=== PATIENT | female | born 1975 | race Caucasian/White ===

== ENCOUNTER 2016-08-18 09:17 | Inpatient (IN) | payer OTHER ==
--- NOTE | ~2016-08-18 | HP ---
History And Physical [id number] [place]. [address] NAME: DINAH HUGHES : 77 STATUS : ADM IN PAT#: [id number] AGE: 40 ADM/REG DATE : 08/18/16 MR#: [id number] REPORT SERV DATE: 08/18/16 DICTATED BY: TAINA GARLAND DATE: 08/18/16 REPORT STATUS : Draft TRANSCRIBED BY: MODL DATE: 08/18/16 DATE OF ADMISSION: 08/18/2016 HISTORY OF PRESENT ILLNESS: Ms. Hughes is an unfortunate 40-year-old woman with metastatic colon cancer with ascites and pleural effusion who had been in the hospital and had been treated by hospice in the past, but she has started treatment at an outside Oncology facility and is still searching for aggressive treatment. She came in because of fever, weakness, dizziness, and was found to be hypotensive in the emergency department. She has had a fever as noted and remained hypotensive even after initiation of IV fluids. PAST MEDICAL HISTORY: Significant for colon cancer diagnosed in 2016, metastatic to liver with malignant ascites and pleural effusion. She had placed herself on hospice care but is now pursuing aggressive therapy. SOCIAL HISTORY: Negative for tobacco abuse, alcohol abuse, or illicit drug use. She has two teenage sons. FAMILY HISTORY: Significant for solid organ malignancy. REVIEW OF SYSTEMS: Review of 10 systems was performed with the help of her mother and aunt who were at the bedside and is positive for what was noted above. PHYSICAL EXAMINATION: GENERAL: On exam, she is a thin, chronically ill-appearing young woman. HEENT: Normocephalic and atraumatic. NECK: Supple. No lymphadenopathy. No JVD. CHEST: Symmetric with good expansion bilaterally. LUNGS: Mostly clear. I could not appreciate any wheezing. CARDIOVASCULAR: She has S1 and S2, which are regular rate and rhythm with a positive fluid wave. She has trace edema. No clubbing. No cyanosis. ASSESSMENT AND PLAN: 1. Fever in the setting of chemotherapy. The patient has been receiving chemotherapy, though she is not presently neutropenic. However, her procalcitonin is extremely high at 171 consistent with sepsis in the setting of immunosuppression from chemotherapy and underlying solid organ malignancy. She also has a very high TSH and had been apparently treating her hypothyroidism with alternative medications instead of standard levothyroxine. Her lactate is elevated at 9.8 and her cortisol is high. This consistent again with sepsis in the setting of immunosuppression, chemotherapy. She does not have an obvious source, though she does have an abnormal chest radiograph with effusion. We have started on broad-spectrum antibiotic therapy, aggressive volume resuscitation including albumin as well a pressor support. She does have a port which has been accessed. Her cortisol level is elevated, so we have not started her on cortisol or steroid replacement, though we have started her on IV Synthroid given her very high TSH in the setting of her acute illness and inadequate replacement therapy. History And Physical [address] [place]. [address] NAME: DINAH HUGHES : [birth year] STATUS : ADM IN [facility]#: [id number] AGE: 40 ADM/REG DATE : 08/18/16 MR#: [id number] REPORT SERV DATE: 08/18/16 DICTATED BY: TANIA GARLAND DATE: 08/18/16 REPORT STATUS : Draft TRANSCRIBED BY: ABEBA DATE: 08/18/16 Care was discussed with the patient and her family. ELIESER/ABEBA Taina Garland M.D. / [id number] CC: Viktoriya Lopez M.D.
--- NOTE | ~2016-08-18 | IDS ---
Interim Discharge Summary [facility] [address] [place]. [address] NAME: DINAH HUGHES : [birth year] STATUS : ADM IN [facility]#: [id number] AGE: 40 ADM/REG DATE : 08/18/16 MR#: [id number] REPORT SERV DATE: 08/24/16 DICTATED BY: TAINA GARLAND DATE: 08/24/16 REPORT STATUS : Draft TRANSCRIBED BY: MODRoland DATE: 08/24/16 ADMISSION DATE: 08/18/2016 DISCHARGE DATE: 08/24/2016 This will serve as an interim discharge summary as the patient is being transferred from the ICU to the Hospitalist Service. DATE OF TRANSFER: 08/24/2016. CONDITION AT DISCHARGE: Alive and improved. DIAGNOSES AT THE TIME OF DISCHARGE: Streptococcal sepsis; septic shock, resolving; metastatic colon cancer, resolved, acute kidney injury, and hypotension due to septic shock. HISTORY OF PRESENT ILLNESS: Ms. Hughes is a 40-year-old woman with acetic colon cancer with ascites and pleural effusion with PleurX catheter, who had been on systemic cytotoxic therapy and came in with decreased alertness, hypotension, and was found to be septic. She had a very high procalcitonin level, which will be discussed below, and has been on antibiotic therapy. For the past few days, we have been trying to wean her off pressors. Her respiratory status has remained stable and she has now been off vasopressors with an encouragingly declining procalcitonin level. REVIEW OF SYSTEMS: Review of 10 systems this morning is positive for what was outlined above. PHYSICAL EXAMINATION: GENERAL: On exam, she is awake and alert, in no acute distress. VITAL SIGNS: She is afebrile with heart rate between 60 and 70. Mean blood pressure between 60 and 80, and good oxygen saturation on room air at rest. HEENT: Normocephalic and atraumatic. NECK: Supple. No lymphadenopathy. No JVD. CHEST: Symmetric with good expansion bilaterally. LUNGS: Her lungs have somewhat coarse breath sounds, were mostly clear. CARDIOVASCULAR: She has S1 and S2, which are regular rate and rhythm. ABDOMEN: Benign. She has ascites. She has trace edema, but no clubbing, no cyanosis. ASSESSMENT AND PLAN: Septic shock: She came in with a high lactate and a high procalcitonin level of 171 with hypotension, acute kidney injury. Her procalcitonin has steadily declined from 170 to 50 to 23, and is now 3.6. Her only positive culture was a blood culture that grew an alpha strep. We presumed this from a GI or abdominal source. She has responded well to therapy without requiring any interventions. While here, she has had a paracentesis on 08/21/2016 with 3800 mL of fluid removed and has had daily drainage from her PleurX catheter with removal of about a liter a day. We had initially treated her with vancomycin, cefepime, and levofloxacin since she had only the alpha strep. We would discontinue the vancomycin, completed five days of levofloxacin, and would continue with the cefepime until her procalcitonin level is normalized, and she has no ongoing evidence of infection. Care Interim Discharge Summary [address] [address] NAME: DINAH HUGHES : [birth year] STATUS : ADM IN [facility]#: [id number] AGE: 40 ADM/REG DATE : 08/18/16 MR#: [id number] REPORT SERV DATE: 08/24/16 DICTATED BY: TAINA GARLAND DATE: 08/24/16 REPORT STATUS : Draft TRANSCRIBED BY: ABEBA DATE: 08/24/16 has been discussed with the patient. She will be transferred to the Hospitalist Service. ELIESER/ABEBA Taina Garland M.D. / [id number] CC: Maria E Davalos M.D.
--- NOTE | ~2016-08-18 | DS ---
Discharge Summary [facility] [address] [place]. [address] NAME: DINAH KIMBROUGH : 77 STATUS : DIS IN PAT#: [id number] AGE: 40 ADM/REG DATE : 08/18/16 MR#: [id number] REPORT SERV DATE: 08/28/16 DICTATED BY: CLAUDIA LEWIS II DATE: 08/27/16 REPORT STATUS : Draft TRANSCRIBED BY: MODL DATE: 08/27/16 ADMISSION DATE: 08/18/2016 DISCHARGE DATE: 08/27/2016 DISCHARGE DIAGNOSES: 1. Septic shock. 2. Strep bacteremia. 3. Thrombocytopenia secondary to chemo, present on admission. 4. Hypotension, chronic. 5. Chronic pain. 6. Chronic malignant ascites with PleurX. 7. Metastatic colon cancer, followed by [facility]. 8. Severe hypoalbuminemia. 9. Chronically elevated LFTs secondary to underlying cancer. 10.Electrolyte abnormalities. CONSULTS: Dr. Garland with Pulmonary and Critical Care. BRIEF HISTORY OF PRESENT ILLNESS: The patient is a 40-year-old female with the above history, who presented to [facility] due to fever, weakness, dizziness and found to be extremely hypotensive in the ER. For detailed history and physical examination, please see Dr. Garland's note from 08/18/2016. HOSPITAL COURSE: On admission, the patient was started on broad-spectrum antibiotics. Her white count on admission was 28, and procalcitonin was 171. Lactic acid was almost 10. The patient was clearly in septic shock, though the only cultures obtained were 1/2 blood cultures with strep viridans. Presumably, the source of infection was intra-abdominal, but no cultures were obtained from PleurX catheter. The patient was initially on vancomycin and cefepime and switched to cefepime. Her procalcitonin has since trended down back to near normal, as well as her white count is also down at 5.5. She has been afebrile and now fairly stable. She is chronically hypotensive and has been started on midodrine. Her cortisol level was 37, so doubt significant adrenal insufficiency. Her TSH was also elevated at 20, but free T4 was normal, so likely more related to euthyroid sick syndrome. This will need to be repeated as an outpatient. Otherwise, she continues to drain her abdominal PleurX daily and is limited to 1100 mL daily at home, though more has been drained daily while here. She will continue to drain her abdominal PleurX herself at home. She has received a total of nine days of cefepime. Given her positive blood culture, we will treat for a total of two weeks and switch to Duricef to cover strep. Otherwise, she is clinically stable for discharge. DISCHARGE MEDICATIONS: 1. Roxicodone 5 mg p.o. q.4 hours p.r.n. pain. 2. Xarelto 20 mg p.o. daily. 3. Midodrine 10 mg p.o. t.i.d. 4. L-glutamine powder 15 mL p.o. daily. 5. Calcium carbonate mg p.o. b.i.d. p.r.n. Discharge Summary [address] [address] NAME: DINAH KIMBROUGH : 77 STATUS : DIS IN PAT#: [id number] AGE: 40 ADM/REG DATE : 08/18/16 MR#: [id number] REPORT SERV DATE: 08/28/16 DICTATED BY: CLAUDIA LEWIS II DATE: 08/27/16 REPORT STATUS : Draft TRANSCRIBED BY: ABEBA DATE: 08/27/16 6. Cortisol [employer] OTC tab daily. 7. Beta-1, 3-D Glucan tab daily. 8. Milk thistle two tabs p.o. b.i.d. 9. Doxepin 10 mg p.o. daily p.r.n. pain. 10.Cholecalciferol 2000 units p.o. daily. 11.Synthroid supplement one tab p.o. t.i.d. 12.Simethicone p.r.n. 13.B complex tab daily. 14.Duricef 1000 mg p.o. b.i.d. x5 days. DISCHARGE INSTRUCTIONS: The patient will follow up with [facility] in one to two weeks. LUCITA/ABEBA Claudia Lewis II, MD / [id number]
[2016-08-18 09:03] LABS: BASOPHILS 0.1 %; BASOPHILS ABSOLUTE 0.02 10/3/uL (0.0-0.16); EOSINOPHILS 0 %; EOSINOPHILS ABSOLUTE 0.01 10/3/uL (0.0-0.53); HEMATOCRIT 29.7 % (36.0-48.0); HEMOGLOBIN 9.3 g/dL (12.0-16.0); IMMATURE GRANULOCYTES 1.1 %; LYMPHOCYTES 1.7 %; LYMPHOCYTES ABSOLUTE 0.48 10/3/uL (0.67-4.30); MEAN CORPUS HGB CONC 31.3 g/dL (32.0-36.0); MEAN CORPUSCULAR HEMOGLOB 31.4 pg (26.0-34.0); MEAN PLATELET VOLUME 10.6 fL (9.2-13.0); MONOCYTES 0.2 %; MONOCYTES ABSOLUTE 0.05 10/3/uL (0.21-1.20); NEUTROPHILS 96.9 %; NEUTROPHILS ABSOLUTE 27.29 10/3/uL (2.02-8.40); RBC DISTRIBUTION WIDTH 18.4 % (12.0-16.0); RED CELL COUNT 2.96 10/6/uL (4.0-5.6)
[2016-08-18 09:05] LABS: ER CBC TAT 0 Hrs 08 Mins; MANUAL DIFF NO %; MEAN CORPUSCULAR VOLUME 100.3 fL (80-100); PLATELET COUNT 217 10/3/uL (150-400); WHITE BLOOD CELLS 28.2 10/3/uL (4.5-10.5)
[2016-08-18 09:06] LABS: IMMATURE GRANULOCYTES ABSOLUTE 0.32 10/3/uL (0.0-0.11)
[2016-08-18 09:14] LABS: ASCORBIC ACID (UR NOT ORDER) NEG (NEG); BILIRUBIN, URINE NEGATIVE (NEG); ER URINALYSIS TAT 0 Hrs 11 Mins; KETONE, URINE NEGATIVE (NEG); LEUKOCYTE ESTERASE(NOT OR NEG (NEG); NITRITE (URINE) NEG (NEG); WBC (NOT ORDERED) (RFLEX) < 1 (0-5)
[~2016-08-18 09:17] MED LIST: DEX2 PO; PRILO PO; RITALIN5 PO; ULTRAM50 PO; VITAMIN B17 PO; XARELTO20 MG PO
[2016-08-18 09:20] LABS: A/G RATIO 0.3 (0.7-1.9); ALBUMIN 1.3 G/DL (3.5-5.0); ALKALINE PHOSPHATASE 678 U/L (45-117); BUN (BLOOD UREA NITROGEN) 16 MG/DL (6-23); CALCIUM, SERUM 8.7 MG/DL (8.5-10.4); CHLORIDE, SERUM 109 MMOL/L (96-112); CO2 (CARBON DIOXIDE) 16 MMOL/L (24-34); CREATININE 1.26 MG/DL (0.55-1.02); GFR AFRICAN AMERICAN 62 ML/MIN (>=60); GFR NON AFRICAN AMERICAN 54 ML/MIN (>=60); GLOBULIN 3.8 G/DL (2.5-4.1); GLUCOSE, SERUM 58 MG/DL (60-99); SGPT(ALT) 58 U/L (5-65); SODIUM, SERUM 141 MMOL/L (135-148); TOTAL BILIRUBIN 0.8 MG/DL (0-1.2); TOTAL PROTEIN 5.1 G/DL (6.0-8.5)
[2016-08-18 09:21] LABS: SGOT(AST) 93 U/L (5-40)
[2016-08-18 09:34] LABS: BAND NEUTROPHILS 23 %; ER DIFF TAT 0 Hrs 37 Mins; LYMPHOCYTES 3 %; LYMPHOCYTES ABSOLUTE (CALC) 0.85 10/3/uL (0.67-4.30); MONOCYTES 3 %; MONOCYTES ABSOLUTE (CALC) 0.85 10/3/uL (0.21-1.20); NEUTROPHILS ABSOLUTE (CALC) 26.51 10/3/uL (2.02-8.40); PLATELET ESTIMATE ADQ (ADEQUATE); SEGMENTED NEUTROPHIL (0) 71 %; TOTAL NUCLEATED CELLS 100
[2016-08-18 09:35] LABS: ANISOCYTOSIS 1+ (5-10/OIF) (0-5/OIF); HYPOCHROMIA 1+ (3-10/OIF) (0-2/OIF); MACROCYTES 1+ (5-10/OIF) (0-5/OIF)
[2016-08-18] MEDS ORDERED: OXYCOD PO (10:47)
[2016-08-18] MEDS ORDERED: TUMS E-X750 M2 PO (10:47)
[2016-08-18] MEDS ORDERED: L-GLUTAMINE POWDER PO (10:47)
[2016-08-18] MEDS ORDERED: CORTISOL MANAGER PO (10:48)
[2016-08-18] MEDS ORDERED: BETA PO (10:49)
[2016-08-18] MEDS ORDERED: MILK THISTLE PO (10:49)
[2016-08-18] MEDS ORDERED: VITAMIN D3 PO (10:50)
[2016-08-18] MEDS ORDERED: DOX10 PO (10:50)
[2016-08-18] MEDS ORDERED: THYROID SUPPLEMENT PO (10:52)
[2016-08-18] MEDS ORDERED: MYTAB GAS125 MG PO (10:53)
[2016-08-18] MEDS ORDERED: VITAMIN B PO (10:53)
[2016-08-18] MEDS ORDERED: EMLA TOP (10:53)
[2016-08-18] MEDS ORDERED: XARELTO20 MG PO (11:01)
[2016-08-18] MEDS ORDERED: CHEMO THERAPY IV (11:04)
[2016-08-18 12:42] LABS: FREE T4 1.06 NG/DL (0.76-1.46); ULTRASENSITIVE TSH 19.5 MCIU/ML (0.358-3.740)
[2016-08-18 13:09] LABS: PROCALCITONIN 171.3 ng/mL (<0.5)
[2016-08-18 14:47] LABS: T4 (THYROXINE) TOTAL 5.8 MCG/DL (4.5-12.0)
[2016-08-18 14:48] LABS: ULTRASENSITIVE TSH 19.7 MCIU/ML (0.358-3.740)
[2016-08-19 05:39] LABS: A/G RATIO 0.4 (0.7-1.9); ALBUMIN 1.5 G/DL (3.5-5.0); BUN (BLOOD UREA NITROGEN) 16 MG/DL (6-23); CALCIUM, SERUM 8.1 MG/DL (8.5-10.4); CHLORIDE, SERUM 113 MMOL/L (96-112); CO2 (CARBON DIOXIDE) 17 MMOL/L (24-34); CREATININE 0.86 MG/DL (0.55-1.02); GFR AFRICAN AMERICAN 99 ML/MIN (>=60); GFR NON AFRICAN AMERICAN 85 ML/MIN (>=60); POTASSIUM, SERUM 3.7 MMOL/L (3.5-5.3); SGOT(AST) 1157 U/L (5-40); SGPT(ALT) 451 U/L (5-65); SODIUM, SERUM 144 MMOL/L (135-148); TOTAL BILIRUBIN 0.9 MG/DL (0-1.2); TOTAL PROTEIN 5.5 G/DL (6.0-8.5)
[2016-08-19 05:40] LABS: ALKALINE PHOSPHATASE 548 U/L (45-117); GLUCOSE, SERUM 124 MG/DL (60-99)
[2016-08-19 05:49] LABS: HEMATOCRIT 30.6 % (36.0-48.0); HEMOGLOBIN 9.3 g/dL (12.0-16.0); MEAN CORPUS HGB CONC 30.4 g/dL (32.0-36.0); MEAN CORPUSCULAR HEMOGLOB 31.3 pg (26.0-34.0); MEAN PLATELET VOLUME 10.6 fL (9.2-13.0); PLATELET COUNT 238 10/3/uL (150-400); RED CELL COUNT 2.97 10/6/uL (4.0-5.6)
[2016-08-19 05:50] LABS: MANUAL DIFF YES %; WHITE BLOOD CELLS 60.9 10/3/uL (4.5-10.5)
[2016-08-19 06:34] LABS: ANISOCYTOSIS 1+ (5-10/OIF) (0-5/OIF); BAND NEUTROPHILS 35 %; LYMPHOCYTES 1 %; LYMPHOCYTES ABSOLUTE (CALC) 0.61 10/3/uL (0.67-4.30); MACROCYTES 1+ (5-10/OIF) (0-5/OIF); NEUTROPHILS ABSOLUTE (CALC) 60.29 10/3/uL (2.02-8.40); PLATELET ESTIMATE ADQ (ADEQUATE); SEGMENTED NEUTROPHIL (0) 64 %; TOTAL NUCLEATED CELLS 100; TOXIC GRANULATION 1+
[2016-08-19 06:35] LABS: VACUOLATED NEUTROPHILES OCC
[2016-08-19 06:36] LABS: POLYCHROMASIA 1+ (2-5/OIF) (0-1/OIF)
[2016-08-19 06:55] LABS: PHOSPHORUS, SERUM 3.2 MG/DL (2.5-4.5)
[2016-08-19 08:01] LABS: LACTATE 4.4 MMOL/L (0.3-2.4)
[2016-08-20 04:28] LABS: HEMATOCRIT 25.8 % (36.0-48.0); HEMOGLOBIN 8.4 g/dL (12.0-16.0); MANUAL DIFF YES %; MEAN CORPUS HGB CONC 32.6 g/dL (32.0-36.0); MEAN CORPUSCULAR HEMOGLOB 31.6 pg (26.0-34.0); MEAN PLATELET VOLUME 10.7 fL (9.2-13.0); PLATELET COUNT 126 10/3/uL (150-400); RBC DISTRIBUTION WIDTH 18.5 % (12.0-16.0); RED CELL COUNT 2.66 10/6/uL (4.0-5.6); WHITE BLOOD CELLS 25.4 10/3/uL (4.5-10.5)
[2016-08-20 04:51] LABS: CALCIUM, SERUM 8.1 MG/DL (8.5-10.4); CHLORIDE, SERUM 114 MMOL/L (96-112); CREATININE 0.56 MG/DL (0.55-1.02); GFR AFRICAN AMERICAN 136 ML/MIN (>=60); GFR NON AFRICAN AMERICAN 117 ML/MIN (>=60); GLUCOSE, SERUM 105 MG/DL (60-99); POTASSIUM, SERUM 3.4 MMOL/L (3.5-5.3); SODIUM, SERUM 147 MMOL/L (135-148)
[2016-08-20 04:53] LABS: BUN (BLOOD UREA NITROGEN) 10 MG/DL (6-23); CO2 (CARBON DIOXIDE) 22 MMOL/L (24-34)
[2016-08-20 04:54] LABS: BAND NEUTROPHILS 4 %; LYMPHOCYTES 6 %; LYMPHOCYTES ABSOLUTE (CALC) 1.52 10/3/uL (0.67-4.30); MONOCYTES 1 %; MONOCYTES ABSOLUTE (CALC) 0.25 10/3/uL (0.21-1.20); NEUTROPHILS ABSOLUTE (CALC) 23.62 10/3/uL (2.02-8.40); SEGMENTED NEUTROPHIL (0) 89 %; TOTAL NUCLEATED CELLS 100
[2016-08-20 04:57] LABS: ANISOCYTOSIS 1+ (5-10/OIF) (0-5/OIF); PLATELET ESTIMATE SLT DEC (ADEQUATE)
[2016-08-20 06:57] LABS: PROCALCITONIN 52.52 ng/mL (<0.5)
[2016-08-21 06:08] LABS: MEAN CORPUS HGB CONC 32.1 g/dL (32.0-36.0); MEAN CORPUSCULAR HEMOGLOB 31.4 pg (26.0-34.0); MEAN CORPUSCULAR VOLUME 97.6 fL (80-100); MEAN PLATELET VOLUME 10.6 fL (9.2-13.0); PLATELET COUNT 93 10/3/uL (150-400); RBC DISTRIBUTION WIDTH 18.4 % (12.0-16.0); RED CELL COUNT 2.87 10/6/uL (4.0-5.6)
[2016-08-21 06:09] LABS: MANUAL DIFF YES %; WHITE BLOOD CELLS 13.4 10/3/uL (4.5-10.5)
[2016-08-21 06:26] LABS: BUN (BLOOD UREA NITROGEN) 10 MG/DL (6-23); CALCIUM, SERUM 7.9 MG/DL (8.5-10.4); CHLORIDE, SERUM 111 MMOL/L (96-112); CO2 (CARBON DIOXIDE) 20 MMOL/L (24-34); CREATININE 0.35 MG/DL (0.55-1.02); GFR AFRICAN AMERICAN 159 ML/MIN (>=60); GFR NON AFRICAN AMERICAN 137 ML/MIN (>=60); POTASSIUM, SERUM 3.5 MMOL/L (3.5-5.3); SODIUM, SERUM 142 MMOL/L (135-148)
[2016-08-21 06:30] LABS: GLUCOSE, SERUM 83 MG/DL (60-99)
[2016-08-21 06:34] LABS: BAND NEUTROPHILS 8 %; IMMATURE GRANS ABSOLUTE (CALC) 0.13 10/3/uL (0.0-0.11); LYMPHOCYTES 11 %; LYMPHOCYTES ABSOLUTE (CALC) 1.47 10/3/uL (0.67-4.30); METAMYELOCYTES 1 %; MONOCYTES 2 %; MONOCYTES ABSOLUTE (CALC) 0.27 10/3/uL (0.21-1.20); NEUTROPHILS ABSOLUTE (CALC) 11.52 10/3/uL (2.02-8.40); PLATELET ESTIMATE DEC (ADEQUATE); SEGMENTED NEUTROPHIL (0) 78 %; TOTAL NUCLEATED CELLS 100
[2016-08-21 06:35] LABS: ANISOCYTOSIS 1+ (5-10/OIF) (0-5/OIF); POLYCHROMASIA 1+ (2-5/OIF) (0-1/OIF)
[2016-08-21 06:36] LABS: POIKILOCYTOSIS 1+ (5-10/OIF) (0-5/OIF); TOXIC GRANULATION 1+
[2016-08-21 07:23] LABS: PROCALCITONIN 23.37 ng/mL (<0.5)
[2016-08-21 13:32] LABS: BUN (BLOOD UREA NITROGEN) 9 MG/DL (6-23); CALCIUM, SERUM 7.9 MG/DL (8.5-10.4); CHLORIDE, SERUM 109 MMOL/L (96-112); CO2 (CARBON DIOXIDE) 24 MMOL/L (24-34); CREATININE 0.51 MG/DL (0.55-1.02); GFR AFRICAN AMERICAN 140 ML/MIN (>=60); GFR NON AFRICAN AMERICAN 121 ML/MIN (>=60); GLUCOSE, SERUM 89 MG/DL (60-99); PHOSPHORUS, SERUM 1.4 MG/DL (2.5-4.5); POTASSIUM, SERUM 3.8 MMOL/L (3.5-5.3); SODIUM, SERUM 141 MMOL/L (135-148)
[2016-08-21 13:34] LABS: TROPONIN I 0.05 NG/ML (<0.05)
[2016-08-22 04:32] LABS: BASOPHILS 0.2 %; BASOPHILS ABSOLUTE 0.02 10/3/uL (0.0-0.16); EOSINOPHILS 0.3 %; EOSINOPHILS ABSOLUTE 0.03 10/3/uL (0.0-0.53); HEMATOCRIT 25.7 % (36.0-48.0); HEMOGLOBIN 8.4 g/dL (12.0-16.0); IMMATURE GRANULOCYTES 0.5 %; IMMATURE GRANULOCYTES ABSOLUTE 0.05 10/3/uL (0.0-0.11); LYMPHOCYTES 19.9 %; LYMPHOCYTES ABSOLUTE 1.92 10/3/uL (0.67-4.30); MEAN CORPUS HGB CONC 32.7 g/dL (32.0-36.0); MEAN CORPUSCULAR HEMOGLOB 31.5 pg (26.0-34.0); MEAN CORPUSCULAR VOLUME 96.3 fL (80-100); MEAN PLATELET VOLUME 10.4 fL (9.2-13.0); MONOCYTES ABSOLUTE 0.77 10/3/uL (0.21-1.20); NEUTROPHILS 71.1 %; NEUTROPHILS ABSOLUTE 6.85 10/3/uL (2.02-8.40); PLATELET COUNT 84 10/3/uL (150-400); RBC DISTRIBUTION WIDTH 18.3 % (12.0-16.0); RED CELL COUNT 2.67 10/6/uL (4.0-5.6); WHITE BLOOD CELLS 9.6 10/3/uL (4.5-10.5)
[2016-08-22 04:33] LABS: MANUAL DIFF NO %
[2016-08-22 04:38] LABS: INTERNATIONAL NORMAL RATI 1.9 UNITS (-); PARTIAL THROMBO TIME 53.6 SEC (22.5-37.2); PROTIME (NOT ORD) 21.9 SEC (12.0-14.5)
[2016-08-22 04:58] LABS: A/G RATIO 0.4 (0.7-1.9); ALBUMIN 1.5 G/DL (3.5-5.0); BUN (BLOOD UREA NITROGEN) 8 MG/DL (6-23); CALCIUM, SERUM 7.4 MG/DL (8.5-10.4); CHLORIDE, SERUM 109 MMOL/L (96-112); CO2 (CARBON DIOXIDE) 23 MMOL/L (24-34); CREATININE 0.46 MG/DL (0.55-1.02); GFR AFRICAN AMERICAN 145 ML/MIN (>=60); GFR NON AFRICAN AMERICAN 125 ML/MIN (>=60); GLOBULIN 3.4 G/DL (2.5-4.1); GLUCOSE, SERUM 80 MG/DL (60-99); PHOSPHORUS, SERUM 1.7 MG/DL (2.5-4.5); POTASSIUM, SERUM 3.3 MMOL/L (3.5-5.3); SGOT(AST) 166 U/L (5-40); SGPT(ALT) 220 U/L (5-65); SODIUM, SERUM 142 MMOL/L (135-148); TOTAL BILIRUBIN 1.1 MG/DL (0-1.2); TOTAL PROTEIN 4.9 G/DL (6.0-8.5)
[2016-08-22 05:09] LABS: ALKALINE PHOSPHATASE 742 U/L (45-117)
[2016-08-22 06:55] LABS: PROCALCITONIN 11.55 ng/mL (<0.5)
[2016-08-22 17:38] LABS: BUN (BLOOD UREA NITROGEN) 8 MG/DL (6-23); CHLORIDE, SERUM 108 MMOL/L (96-112); CO2 (CARBON DIOXIDE) 28 MMOL/L (24-34); CREATININE 0.55 MG/DL (0.55-1.02); GFR AFRICAN AMERICAN 137 ML/MIN (>=60); GFR NON AFRICAN AMERICAN 118 ML/MIN (>=60); GLUCOSE, SERUM 89 MG/DL (60-99); PHOSPHORUS, SERUM 2.1 MG/DL (2.5-4.5); POTASSIUM, SERUM 3.5 MMOL/L (3.5-5.3); SODIUM, SERUM 142 MMOL/L (135-148)
[2016-08-23 07:13] LABS: BUN (BLOOD UREA NITROGEN) 6 MG/DL (6-23); CALCIUM, SERUM 7.5 MG/DL (8.5-10.4); CHLORIDE, SERUM 112 MMOL/L (96-112); CREATININE 0.47 MG/DL (0.55-1.02); GFR AFRICAN AMERICAN 144 ML/MIN (>=60); GFR NON AFRICAN AMERICAN 124 ML/MIN (>=60); GLUCOSE, SERUM 93 MG/DL (60-99); PHOSPHORUS, SERUM 2.2 MG/DL (2.5-4.5); POTASSIUM, SERUM 3.6 MMOL/L (3.5-5.3); SODIUM, SERUM 143 MMOL/L (135-148)
[2016-08-23 07:15] LABS: CO2 (CARBON DIOXIDE) 23 MMOL/L (24-34)
[2016-08-24 04:51] LABS: BASOPHILS 0.1 %; BASOPHILS ABSOLUTE 0.01 10/3/uL (0.0-0.16); EOSINOPHILS 0.3 %; EOSINOPHILS ABSOLUTE 0.02 10/3/uL (0.0-0.53); HEMATOCRIT 24.6 % (36.0-48.0); HEMOGLOBIN 7.7 g/dL (12.0-16.0); IMMATURE GRANULOCYTES 0.4 %; IMMATURE GRANULOCYTES ABSOLUTE 0.03 10/3/uL (0.0-0.11); LYMPHOCYTES 25.8 %; MANUAL DIFF NO %; MEAN CORPUS HGB CONC 31.3 g/dL (32.0-36.0); MEAN CORPUSCULAR HEMOGLOB 30.6 pg (26.0-34.0); MEAN CORPUSCULAR VOLUME 97.6 fL (80-100); MEAN PLATELET VOLUME 11.4 fL (9.2-13.0); MONOCYTES ABSOLUTE 0.77 10/3/uL (0.21-1.20); NEUTROPHILS 62.4 %; NEUTROPHILS ABSOLUTE 4.35 10/3/uL (2.02-8.40); PLATELET COUNT 85 10/3/uL (150-400); RBC DISTRIBUTION WIDTH 18.9 % (12.0-16.0); RED CELL COUNT 2.52 10/6/uL (4.0-5.6)
[2016-08-24 05:06] LABS: BUN (BLOOD UREA NITROGEN) 8 MG/DL (6-23); CALCIUM, SERUM 7.8 MG/DL (8.5-10.4); CHLORIDE, SERUM 112 MMOL/L (96-112); CO2 (CARBON DIOXIDE) 23 MMOL/L (24-34); CREATININE 0.46 MG/DL (0.55-1.02); GFR AFRICAN AMERICAN 145 ML/MIN (>=60); GFR NON AFRICAN AMERICAN 125 ML/MIN (>=60); GLUCOSE, SERUM 95 MG/DL (60-99); POTASSIUM, SERUM 3.5 MMOL/L (3.5-5.3); SODIUM, SERUM 144 MMOL/L (135-148)
[2016-08-24 05:46] LABS: PROCALCITONIN 3.59 ng/mL (<0.5)
[2016-08-24 05:56] LABS: PHOSPHORUS, SERUM 2.5 MG/DL (2.5-4.5)
[2016-08-25 06:33] LABS: BASOPHILS 0.2 %; BASOPHILS ABSOLUTE 0.01 10/3/uL (0.0-0.16); EOSINOPHILS 0.4 %; EOSINOPHILS ABSOLUTE 0.02 10/3/uL (0.0-0.53); HEMATOCRIT 23.9 % (36.0-48.0); HEMOGLOBIN 7.5 g/dL (12.0-16.0); IMMATURE GRANULOCYTES 0.5 %; IMMATURE GRANULOCYTES ABSOLUTE 0.03 10/3/uL (0.0-0.11); LYMPHOCYTES 21.2 %; LYMPHOCYTES ABSOLUTE 1.18 10/3/uL (0.67-4.30); MEAN CORPUS HGB CONC 31.4 g/dL (32.0-36.0); MEAN CORPUSCULAR HEMOGLOB 30.9 pg (26.0-34.0); MEAN CORPUSCULAR VOLUME 98.4 fL (80-100); MEAN PLATELET VOLUME 10.2 fL (9.2-13.0); MONOCYTES 7.2 %; NEUTROPHILS 70.5 %; NEUTROPHILS ABSOLUTE 3.92 10/3/uL (2.02-8.40); PLATELET COUNT 77 10/3/uL (150-400); RED CELL COUNT 2.43 10/6/uL (4.0-5.6); WHITE BLOOD CELLS 5.6 10/3/uL (4.5-10.5)
[2016-08-25 06:34] LABS: MANUAL DIFF NO %
[2016-08-25 06:53] LABS: BUN (BLOOD UREA NITROGEN) 9 MG/DL (6-23); CALCIUM, SERUM 7.5 MG/DL (8.5-10.4); CHLORIDE, SERUM 113 MMOL/L (96-112); CO2 (CARBON DIOXIDE) 23 MMOL/L (24-34); CREATININE 0.44 MG/DL (0.55-1.02); GFR AFRICAN AMERICAN 147 ML/MIN (>=60); GFR NON AFRICAN AMERICAN 127 ML/MIN (>=60); GLUCOSE, SERUM 94 MG/DL (60-99); POTASSIUM, SERUM 3.3 MMOL/L (3.5-5.3); SODIUM, SERUM 145 MMOL/L (135-148)
[2016-08-25 07:02] LABS: ANISOCYTOSIS 1+ (5-10/OIF) (0-5/OIF); MACROCYTES 1+ (5-10/OIF) (0-5/OIF); PLATELET ESTIMATE DEC (ADEQUATE)
[2016-08-25 07:04] LABS: PROCALCITONIN 1.91 ng/mL (<0.5)
[2016-08-26 05:28] LABS: BUN (BLOOD UREA NITROGEN) 10 MG/DL (6-23); CALCIUM, SERUM 8.1 MG/DL (8.5-10.4); CHLORIDE, SERUM 111 MMOL/L (96-112); CO2 (CARBON DIOXIDE) 25 MMOL/L (24-34); GFR AFRICAN AMERICAN 152 ML/MIN (>=60); GFR NON AFRICAN AMERICAN 131 ML/MIN (>=60); GLUCOSE, SERUM 88 MG/DL (60-99); POTASSIUM, SERUM 3.7 MMOL/L (3.5-5.3); SODIUM, SERUM 142 MMOL/L (135-148)
[2016-08-27 06:20] LABS: BASOPHILS 0.4 %; BASOPHILS ABSOLUTE 0.02 10/3/uL (0.0-0.16); EOSINOPHILS 0.7 %; EOSINOPHILS ABSOLUTE 0.04 10/3/uL (0.0-0.53); HEMATOCRIT 26.2 % (36.0-48.0); HEMOGLOBIN 8.2 g/dL (12.0-16.0); IMMATURE GRANULOCYTES 0.2 %; IMMATURE GRANULOCYTES ABSOLUTE 0.01 10/3/uL (0.0-0.11); LYMPHOCYTES 25.7 %; LYMPHOCYTES ABSOLUTE 1.42 10/3/uL (0.67-4.30); MANUAL DIFF NO %; MEAN CORPUS HGB CONC 31.3 g/dL (32.0-36.0); MEAN CORPUSCULAR HEMOGLOB 31.5 pg (26.0-34.0); MEAN CORPUSCULAR VOLUME 100.8 fL (80-100); MEAN PLATELET VOLUME 11.7 fL (9.2-13.0); MONOCYTES 14.1 %; MONOCYTES ABSOLUTE 0.78 10/3/uL (0.21-1.20); NEUTROPHILS 58.9 %; NEUTROPHILS ABSOLUTE 3.25 10/3/uL (2.02-8.40); PLATELET COUNT 150 10/3/uL (150-400); RBC DISTRIBUTION WIDTH 20.9 % (12.0-16.0); WHITE BLOOD CELLS 5.5 10/3/uL (4.5-10.5)
[2016-08-27 06:28] LABS: BUN (BLOOD UREA NITROGEN) 11 MG/DL (6-23); CALCIUM, SERUM 8.2 MG/DL (8.5-10.4); CHLORIDE, SERUM 111 MMOL/L (96-112); CO2 (CARBON DIOXIDE) 23 MMOL/L (24-34); CREATININE 0.44 MG/DL (0.55-1.02); GFR AFRICAN AMERICAN 147 ML/MIN (>=60); GFR NON AFRICAN AMERICAN 127 ML/MIN (>=60); GLUCOSE, SERUM 89 MG/DL (60-99); POTASSIUM, SERUM 4.1 MMOL/L (3.5-5.3); SODIUM, SERUM 142 MMOL/L (135-148)
[2016-08-27] MEDS ORDERED: PROAMATINE10 MG PO (16:07)
[2016-08-27] MEDS ORDERED: DURICEF PO (16:08)
[2016-11-05] MEDS ORDERED: DURICEF PO (10:11)
[2016-11-17] MEDS ORDERED: DURA50 TOP (13:23)
[2016-11-17] MEDS ORDERED: ERY-TAB500 MG PO (13:23)
[2016-11-17] MEDS ORDERED: CONSTULOSE PO (13:24)
[2016-11-17] MEDS ORDERED: NEUR300 PO (13:24)
[2016-11-17] MEDS ORDERED: COMP10B PO (13:25)
[2016-11-17] MEDS ORDERED: PROTONIX PO (13:25)
[2016-11-17] MEDS ORDERED: SUCR PO (13:25)
[2016-11-27] MEDS ORDERED: MORPHINE PO (13:36)
[2016-11-27] MEDS ORDERED: CLEOCIN300 MG PO (13:37)
[2016-11-27] MEDS ORDERED: [UNRECOGNIZED DRUG - OTHER] (13:38)
[2016-12-01] MEDS ORDERED: BISR PR (10:55)
[2016-12-01] MEDS ORDERED: REG PO (10:55)
[2016-12-01] MEDS ORDERED: MOVANTIK25 MG PO (10:56)
[2016-12-01] MEDS ORDERED: TPN IV (11:02)
== END 2016-08-27 18:24 | disposition home or self-care (01) | DRG 871 ==
LOC: ER 09:17 → CCU 12:40 → 7NO 08-24 09:39
PROVIDERS: Emergency Medicine; Internal Medicine; Internal Medicine Pulmonary Disease
PROC: 0W9G3ZZ Drainage of Peritoneal Cavity, Percutaneous Approach (ICD-10-PCS; principal; 2016-08-21)
DX: A40.8 Other streptococcal sepsis (principal); R65.21 Severe sepsis with septic shock; R18.0 Malignant ascites; N17.9 Acute kidney failure, unspecified; J91.0 Malignant pleural effusion; C78.7 Secondary malignant neoplasm of liver and intrahepatic bile duct; C18.9 Malignant neoplasm of colon, unspecified; E46 Unspecified protein-calorie malnutrition; E03.9 Hypothyroidism, unspecified; T45.1X5A Adverse effect of antineoplastic and immunosuppressive drugs, initial encounter; Z79.899 Other long term (current) drug therapy
CPT/HCPCS: 49083; 70450; 71010; 80048; 80053; 80202; 81001; 82330; 82533; 82962; 83605; 83735; 84100; 84145; 84436; 84439; 84443; 84484; 85025; 85610; 85730; 87040; 93005; 96361; 96365; 96367; 96368; 97161-GP; 99285; A9270-GY; C1729; J0692; J1956; J2405; J2800; J3370; J3475; P9045; P9047